=== PATIENT | male | born 1950 | race Caucasian/White ===

== ENCOUNTER 2016-07-08 23:26 | Emergency (ER) | payer OTHER ==
[2016-07-08 19:31] LABS: BASOPHILS 0.4 %; BASOPHILS ABSOLUTE 0.05 10/3/uL (0.0-0.16); EOSINOPHILS 4.8 %; ER CBC TAT 0 Hrs 05 Mins; HEMOGLOBIN 11.2 g/dL (13.6-17.8); IMMATURE GRANULOCYTES 0.2 %; IMMATURE GRANULOCYTES ABSOLUTE 0.03 10/3/uL (0.0-0.11); LYMPHOCYTES 29.5 %; LYMPHOCYTES ABSOLUTE 3.69 10/3/uL (0.67-4.30); MEAN CORPUS HGB CONC 33.5 g/dL (32.0-36.0); MEAN CORPUSCULAR HEMOGLOB 25.9 pg (26.0-34.0); MEAN CORPUSCULAR VOLUME 77.3 fL (80-100); MEAN PLATELET VOLUME 8.5 fL (9.2-13.0); MONOCYTES 6.5 %; MONOCYTES ABSOLUTE 0.81 10/3/uL (0.21-1.20); NEUTROPHILS 58.6 %; NEUTROPHILS ABSOLUTE 7.33 10/3/uL (2.02-8.40); PLATELET COUNT 348 10/3/uL (150-400); RBC DISTRIBUTION WIDTH 15.8 % (12.0-16.0); RED CELL COUNT 4.32 10/6/uL (4.7-6.1); WHITE BLOOD CELLS 12.5 10/3/uL (4.5-10.5)
[2016-07-08 19:35] LABS: HEMATOCRIT 33.4 % (40.0-51.0); MANUAL DIFF NO %
[2016-07-08 19:41] LABS: INTERNATIONAL NORMAL RATI 1.1 UNITS (-); PROTIME (NOT ORD) 14.5 SEC (12.0-14.5)
[2016-07-08 19:42] LABS: PARTIAL THROMBO TIME 37.7 SEC (22.5-37.2)
[2016-07-08 19:47] LABS: BUN (BLOOD UREA NITROGEN) 9 MG/DL (6-23); CALCIUM, SERUM 8.5 MG/DL (8.5-10.4); CHEST PAIN PROFILE TAT 0 Hrs 21 Mins; CHLORIDE, SERUM 101 MMOL/L (96-112); CO2 (CARBON DIOXIDE) 26 MMOL/L (24-34); CREATININE 0.86 MG/DL (0.70-1.30); GFR AFRICAN AMERICAN 105 ML/MIN (>=60); GFR NON AFRICAN AMERICAN 90 ML/MIN (>=60); POTASSIUM, SERUM 3.8 MMOL/L (3.5-5.3); SODIUM, SERUM 133 MMOL/L (135-148); TROPONIN I <0.02 NG/ML (<0.05)
[2016-07-08 19:50] LABS: GLUCOSE, SERUM 86 MG/DL (60-99)
[~2016-07-08 23:26] MED LIST: *DENIES; DULERA 200 MCG/13 GM INH; LEVAQUIN750 MG PO; LOP25 PO; MSCONT15 PO; NORCO1 TAB PO; NORV5 PO; PROTONIX PO; SPIRIVA INH
[2016-10-16] MEDS ORDERED: LEXAPRO10 PO (15:55)
[2016-10-16] MEDS ORDERED: VALIUM10 MG PO (15:57)
[2016-10-16] MEDS ORDERED: ZOFRANODT8 PO (15:58)
[2016-10-16] MEDS ORDERED: LIPITOR20 PO (15:59)
[2016-10-18] MEDS ORDERED: ASA5GR PO (12:30)
[2016-10-18] MEDS ORDERED: PERCOCET 10/3251 TAB PO (12:33)
== END 2016-07-08 23:40 | disposition home or self-care (01) ==
LOC: ER 23:26
PROVIDERS: Hospitalist
DX: M54.5 Low back pain (principal); C34.90 Malignant neoplasm of unspecified part of unspecified bronchus or lung; I10 Essential (primary) hypertension; J44.9 Chronic obstructive pulmonary disease, unspecified; F17.200 Nicotine dependence, unspecified, uncomplicated; Z79.899 Other long term (current) drug therapy
CPT/HCPCS: 71020; 80048; 83735; 84484; 85025; 85610; 85730; 93005; 94640; 99285